=== PATIENT | male | born 1945 | race Caucasian/White ===

== ENCOUNTER 2016-08-15 09:28 | Inpatient (IN) | payer OTHER ==
[~2016-08-15] VITALS: Ht 198.1 cm; Wt 99.6 kg
[2016-08-15 09:58] LABS: BASO % 0.3 %; BASO ABS # 0.02 K/uL (0-0.2); COMPLETE YES; EOS % 3.1 %; HEMATOCRIT 35.2 % (42-52); IG% 0.3 %; LYMPH % 28.1 %; MEAN CORPUSCULAR HEMOGLOBIN 30.3 pg (25-34); MEAN CORPUSCULAR HGB CONC 34.4 g/dl (32-36); MEAN PLATELET VOLUME 9.2 fL (7.4-10.4); MONO % 5.6 %; NEUT % 62.6 %; PLATELET COUNT 181 K/uL (130-400)
--- NOTE | 2016-08-15 10:04 | DIAGNOSTIC IMAGING REPORT ---
SINGLE VIEW CHEST CLINICAL HISTORY: Atypical chest pain. FINDINGS: 2 AP, portable, upright chest radiographs are obtained. No prior studies are available for comparison at the time of dictation. The examination is degraded by portable technique and patient rotation. The heart is enlarged. The pulmonary vasculature is noncongested. Emphysema is suspected and there is nonspecific interstitial thickening. A calcified granuloma is noted in the left lower lobe. Biapical scarring is observed. No airspace consolidation, pleural effusion, or pneumothorax is seen. The bony thorax is grossly intact. IMPRESSION: Cardiomegaly and suspect emphysema. There is no acute cardiopulmonary abnormality. Electronically signed by: Wilbur Gonzales M.D. 08/15/2016 10:02 AM Dictated Date/Time: 08/15/2016 10:00 AM
[2016-08-15] MEDS ORDERED: GLIP-197 PO (10:12)
[2016-08-15] MEDS ORDERED: METO-478 PO (10:12)
[2016-08-15] MEDS ORDERED: PANT20TA2 PO (10:12)
[2016-08-15] MEDS ORDERED: SUCR1TAB29 PO (10:12)
[2016-08-15] MEDS ORDERED: METF-384 PO (10:12)
[2016-08-15] MEDS ORDERED: COEN30CA8 PO (10:12)
[2016-08-15] MEDS ORDERED: PROB1TAB16 PO (10:12)
[2016-08-15] MEDS ORDERED: MULTTAB58 PO (10:12)
[2016-08-15] MEDS ORDERED: ATOR-24 PO (10:12)
[2016-08-15] MEDS ORDERED: CLOP1TAB5 PO (10:12)
[2016-08-15] MEDS ORDERED: LISI20TA3 PO (10:12)
[2016-08-15] MEDS ORDERED: ASPI-232 PO (10:12)
[2016-08-15 10:15] LABS: BUN/CREATININE RATIO 15.6 (10-20); CREATININE 0.88 mg/dl (0.60-1.40); POTASSIUM 4.1 mmol/L (3.5-5.1)
[2016-08-15 10:22] LABS: CALCIUM 8.5 mg/dl (8.5-10.1)
[2016-08-15] MEDS ORDERED: OPTIRAY 320 IV PRN (12:15)
--- NOTE | 2016-08-15 13:00 | DIAGNOSTIC IMAGING REPORT ---
CT ANGIOGRAM OF THE CHEST CLINICAL HISTORY: Atypical chest pain. COMPARISON STUDY: Chest x-ray dated 08/15/2016. TECHNIQUE: Following the IV administration of 118 cc of Optiray 320, CT angiogram of the chest was performed from the upper abdomen to the thoracic inlet utilizing the pulmonary embolus protocol. Images are reviewed in the axial, sagittal, and coronal planes. 3-D MIPS images are created and assessed. IV contrast was administered without complication. CT DOSE: 418.79 mGy.cm FINDINGS: Thyroid: Imaged portions of the thyroid gland are normal in size and attenuation. Thoracic aorta: The thoracic aorta is normal in caliber and demonstrates standard 3-vessel arch anatomy. No evidence of dissection is seen. Pulmonary vasculature: The pulmonary trunk is normal in caliber. There are no filling defects identified in main, lobar, or segmental pulmonary branches to suggest pulmonary embolus. Heart: The heart is enlarged and without pericardial effusion. The coronary arteries are densely calcified. A right coronary artery stent is suggested. Lungs and pleural spaces: Mild emphysema is noted and there is biapical scarring. There is no airspace consolidation or pleural effusion. Dependent atelectasis is observed. The trachea and central airways are clear. There is a 9 mm left lower lobe pulmonary nodule seen on image #140. An additional 8 mm left lower lobe pulmonary nodule is seen on image #156. A tiny calcified granuloma is seen in the left upper lobe. Mediastinum: There is no mediastinal lymphadenopathy. Fanta: Clear. Axillae: There is no axillary lymphadenopathy. Upper abdomen: There is a small hiatal hernia. Scattered hepatic cysts measure up to 13 mm. Nodularity of the hepatic surface contour suggests early changes of cirrhosis. Skeletal structures: The skeletal structures are osteopenic. Mild degenerative changes noted throughout the thoracic spine. No lytic or blastic bony lesions are seen. IMPRESSION: 1. There is no evidence of pulmonary embolus in the main, lobar, or segmental pulmonary arteries. 2. Cardiomegaly and emphysema. 3. There are 2 left lower lobe pulmonary nodules measuring 8 mm and 9 mm. These are pathologically indeterminant but warrant follow-up as per the Fleischner criteria. See below. 4. No airspace consolidation or pleural effusion is identified. 5. Nodularity of the hepatic surface contour suggests early changes of cirrhosis. Clinical correlation will be required. Please refer to below summary of Fleischner criteria recommendations for follow-up of incidental CT nodules (H SivaPrdalen, Guidelines for management of small pulmonary nodules detected on CT scans: A statement from the Fleischner Society, Radiology 237: [phone].) SOLID NODULES Solitary nodule size: <6 mm * low risk patients: no follow-up needed * high risk patients: optional CT at 12 months Solitary nodule size: 6-8 mm * low risk patients: follow-up at 6-12 months, then consider further follow-up at 18-24 months * high risk patients: initial follow-up CT at 6-12 months and then at 18-24 months if no change Solitary nodule size: >8 mm * either low or high risk patients - consider follow-up CT at 3 months, and/or CT-PET, and/or biopsy Multiple nodules size: <6 mm * low risk patients: no routine follow-up * high risk patients: optional CT at 12 months Multiple nodules size: 6-8 mm * low risk patients: follow-up at 3-6 months, then consider further follow-up at 18-24 months * high risk patients: follow-up at 3-6 months, then at 18-24 months if no change Multiple nodules size: >8 mm * low risk patients: follow-up at 3-6 months, then consider further follow-up at 18-24 months * high risk patients: follow-up at 3-6 months, then at 18-24 months if no change Note: newly detected indeterminate nodule in persons 35 years of age or older. * low risk patients: minimal or absent history of smoking and/or other known risk factors * high risk patients: history of smoking or of other known risk factors (e.g. first degree relative with lung cancer, or exposure to asbestos, radon, uranium) * if a nodule up to 8 mm is partly solid or is ground glass further follow-up is required after 24 months to exclude possible slow growing adenocarcinoma (ERIC) SUBSOLID NODULES Solitary pure ground-glass nodule * nodule size <6 mm - no CT follow-up required * nodule size >=6 mm - follow-up CT at 6-12 months, then every 2 years until 5 years Solitary part-solid nodule * nodule size <6 mm - no CT follow-up required * nodule size >=6 mm - follow-up CT at 3-6 months. If unchanged, and solid component remains <6 mm, then annual follow-up for 5 years Multiple subsolid nodules * nodule size <6 mm - follow-up CT at 3-6 months, consider further follow-up at 2 and 4 years if stable * nodule size >=6 mm - follow-up CT at 3-6 months, subsequent management based on the most suspicious nodule(s) Electronically signed by: Wilbur Gonzales M.D. 08/15/2016 12:58 PM Dictated Date/Time: 08/15/2016 12:44 PM
[2016-08-15] MEDS ORDERED: ALUMINUM/MAGNESIUM/SIMETH (MAALOX MAX) 30 ML UDC PO PRN (14:00)
[2016-08-15] MEDS ORDERED: ZOLPIDEM TARTRATE 5 MG TAB PO PRN (14:00)
[2016-08-15] MEDS ORDERED: ONDANSETRON INJ 2 MG/ML 2 ML VIAL IV PRN (14:00)
[2016-08-15] MEDS ORDERED: NITROGLYCERIN OINT 2% 1GM PACKET EXT ONE (14:00)
--- NOTE | 2016-08-15 14:18 | History and Physical ---
History & Physical Date & Time of Service: Aug 15, 2016 at 14:02 Chief Complaint: Chest Pain Primary Care Physician: No Doctor, Assigned History of Present Illness Source: patient, family, hospital records This patient is a pleasant 70-year-old male that presents to the emergency department with complaints of crushing midsternal chest pain that lasted approximately 2-3 minutes this morning. It started around 9 AM. It dissipated on its own. He denies any shortness of breath at the time. No exacerbating factors. He denies any recent dyspnea on exertion. He denies any heart palpitations. He did feel fairly weak when he was walking into the emergency department today. The patient is visiting family in [place]. He is originally from [place], [place]. He does have a significant cardiac history. The patient underwent a cardiac catheterization in May 2015. during that catheterization, 2 stents were placed in the RCA. The patient then had an abnormal stress test in August 2015. That prompted him to undergo another cardiac catheterization. There is noted mild disease of the LAD. Medical management was recommended. No further stents were placed. According to the catheterization report from August 2015, the patient has inferior hypokinesis with a reduced systolic function with an EF of approximately 35%. The patient also complains of intermittent left calf pain 2-3 times at night over the last several weeks. It dissipates on its own. He says that it does not feel like a muscle cramp, it is more severe. He describes it as a very deep pain. He denies any injury. Workup in the emergency department was performed. EKG shows sinus bradycardia with a rate of 44 bpm. No acute ischemic changes were noted. CT of the chest was performed. No PE found. Incidentally, the patient does have 2 small left lower lobe pulmonary nodules. [id number] troponin is negative. 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 He also had diabetes. Social History Smoking Status: Former Smoker (quit smoking in 2002) Alcohol Use: none Marital Status: Housing status: lives with significant other Occupational Status: employed Allergies Coded Allergies: Levofloxacin (Verified Allergy, Unknown, rash, 08/15/16) rash at the iv site Home Medications Scheduled Aspirin (Aspir-81), 1 TAB PO DAILY Atorvastatin (Lipitor), 40 MG PO DAILY Clopidogrel Bisulfate (Plavix), 75 MG PO DAILY Coenzyme Q10 (Ubidecarenone) (Coq-10), 1 CAP PO DAILY Glipizide (Glipizide Er), 7.5 MG PO DAILY Lisinopril (Prinivil), 20 MG PO DAILY Metformin Hcl (Glucophage), 1,000 MG PO BID Metoprolol Succinate (Toprol Xl), 12.5 MG PO DAILY Multiple Vitamin (Multivitamin), 1 TAB PO DAILY Pantoprazole Sodium (Protonix), 20 MG PO DAILY Probiotic Product (Probiotic), 1 TAB PO DAILY Sucralfate (Carafate), 1 GM PO DAILY Review of Systems 10 system review performed and negative unless noted in HPI or below Physical Exam Vital Signs Date Time Temp Pulse Resp B/P Pulse Ox O2 Delivery O2 Flow Rate FiO2 08/15/16 13:30 44 16 184/84 98 Room Air 08/15/16 12:08 45 20 175/77 97 Room Air 08/15/16 11:07 49 16 195/80 97 Room Air 08/15/16 09:54 47 08/15/16 09:31 98 Room Air 08/15/16 09:31 36.8 43 18 201/89 98 Room Air 08/15/16 09:31 99 Room Air General Appearance: no apparent distress Head: normocephalic Eyes: EOMI ENT: + pertinent finding (oral mucosa moist) Neck: no JVD Respiratory/Chest: lungs clear Cardiovascular: no murmur, + bradycardia Abdomen/GI: normal bowel sounds, non tender, soft Extremities/Musculoskelatal: no calf tenderness, no pedal edema Neurologic/Psych: no motor/sensory deficits, oriented x 3 Skin: warm/dry Diagnostics Laboratory Results Results Past 24 Hours Test 08/15/16 09:45 08/15/16 09:52 Range/Units White Blood Count 6.40 4.8-10.8 K/uL Red Blood Count 4.00 4.7-6.1 M/uL Hemoglobin 12.1 14.0-18.0 g/dL Hematocrit 35.2 42-52 % Mean Corpuscular Volume 88.0 80-100 fL Mean Corpuscular Hemoglobin 30.3 25-34 pg Mean Corpuscular Hemoglobin Concent 34.4 32-36 g/dl Platelet Count 181 130-400 K/uL Mean Platelet Volume 9.2 7.4-10.4 fL Neutrophils (%) (Auto) 62.6 % Lymphocytes (%) (Auto) 28.1 % Monocytes (%) (Auto) 5.6 % Eosinophils (%) (Auto) 3.1 % Basophils (%) (Auto) 0.3 % Neutrophils # (Auto) 4.00 1.4-6.5 K/uL Lymphocytes # (Auto) 1.80 1.2-3.4 K/uL Monocytes # (Auto) 0.36 0.11-0.59 K/uL Eosinophils # (Auto) 0.20 0-0.5 K/uL Basophils # (Auto) 0.02 0-0.2 K/uL RDW Standard Deviation 42.1 36.4-46.3 fL RDW Coefficient of Variation 13.1 11.5-14.5 % Immature Granulocyte % (Auto) 0.3 % Immature Granulocyte # (Auto) 0.02 0.00-0.02 K/uL Sodium Level 142 136-145 mmol/L Potassium Level 4.1 3.5-5.1 mmol/L Chloride Level 107 98-107 mmol/L Carbon Dioxide Level 30 21-32 mmol/L Anion Gap 5.0 3-11 mmol/L Blood Urea Nitrogen 14 7-18 mg/dl Creatinine 0.88 0.60-1.40 mg/dl Est Creatinine Clear Calc Drug Dose 101.2 ml/min Estimated GFR () 101.6 Estimated GFR (Non- 87.6 BUN/Creatinine Ratio 15.6 10-20 Random Glucose 186 70-99 mg/dl Calcium Level 8.5 8.5-10.1 mg/dl Total Bilirubin 0.4 0.2-1 mg/dl Direct Bilirubin 0.1 0-0.2 mg/dl Aspartate Amino Transf (AST/SGOT) 16 15-37 U/L Alanine Aminotransferase (ALT/SGPT) 20 12-78 U/L Alkaline Phosphatase 98 45-117 U/L Total Protein 6.7 6.4-8.2 gm/dl Albumin 3.4 3.4-5.0 gm/dl Lipase 89 73-393 U/L Bedside D-Dimer > 450 0-450 ng/mlFEU Bedside Troponin I 0.000 0-0.045 ng/ml Diagnostic Radiology Patient: BERNA ALAS Address1: [address] [facility] [address] Rec: [id number] Address2: Acct ID: [id number] [facility] Zip: [place] [address] Date: 1945 Sex: M Room/Bed: Ref Phy: No Doctor, Assigned SC: SAMSON Att Phy: Report #: [id number] Ruthie Phy: No Doctor, Assigned Test: CXPEA Admit Phy: Manager Nursing Home: [facility] Interpreting Phy: Wilbur Gonzales M.D. Diagnosis: CHEST PAIN Ordering Phy: Chacorta Martínez MD Service Date: 08/15/16 Admit Date: 08/15/16 MNE: [id number] CONF: DICTATED BY: Wilbur Gonzales M.D.]] CC: Chacorta Martínez MD No Doctor, Assigned Endcc: [~ rep ct add3]] CT ANGIOGRAM OF THE CHEST CLINICAL HISTORY: Atypical chest pain. COMPARISON STUDY: Chest x-ray dated 08/15/2016. TECHNIQUE: Following the IV administration of 118 cc of Optiray 320, CT angiogram of the chest was performed from the upper abdomen to the thoracic inlet utilizing the pulmonary embolus protocol. Images are reviewed in the axial, sagittal, and coronal planes. 3-D MIPS images are created and assessed. IV contrast was administered without complication. CT DOSE: 418.79 mGy.cm FINDINGS: Thyroid: Imaged portions of the thyroid gland are normal in size and attenuation. Thoracic aorta: The thoracic aorta is normal in caliber and demonstrates standard 3-vessel arch anatomy. No evidence of dissection is seen. Pulmonary vasculature: The pulmonary trunk is normal in caliber. There are no filling defects identified in main, lobar, or segmental pulmonary branches to suggest pulmonary embolus. Heart: The heart is enlarged and without pericardial effusion. The coronary arteries are densely calcified. A right coronary artery stent is suggested. Lungs and pleural spaces: Mild emphysema is noted and there is biapical scarring. There is no airspace consolidation or pleural effusion. Dependent atelectasis is observed. The trachea and central airways are clear. There is a 9 mm left lower lobe pulmonary nodule seen on image #140. An additional 8 mm left lower lobe pulmonary nodule is seen on image #156. A tiny calcified granuloma is seen in the left upper lobe. Mediastinum: There is no mediastinal lymphadenopathy. Fanta: Clear. Axillae: There is no axillary lymphadenopathy. Upper abdomen: There is a small hiatal hernia. Scattered hepatic cysts measure up to 13 mm. Nodularity of the hepatic surface contour suggests early changes of cirrhosis. Skeletal structures: The skeletal structures are osteopenic. Mild degenerative changes noted throughout the thoracic spine. No lytic or blastic bony lesions are seen. IMPRESSION: 1. There is no evidence of pulmonary embolus in the main, lobar, or segmental pulmonary arteries. 2. Cardiomegaly and emphysema. 3. There are 2 left lower lobe pulmonary nodules measuring 8 mm and 9 mm. These are pathologically indeterminant but warrant follow-up as per the Fleischner criteria. See below. 4. No airspace consolidation or pleural effusion is identified. 5. Nodularity of the hepatic surface contour suggests early changes of cirrhosis. Clinical correlation will be required. Please refer to below summary of Fleischner criteria recommendations for follow-up of incidental CT nodules (Orion Zapata, Guidelines for management of small pulmonary nodules detected on CT scans: A statement from the Fleischner Society, Radiology 237: [phone].) EKG Sinus bradycardia with a rate of 44 bpm Q waves noted in V1 through V3 No acute ischemic changes noted No previous for comparison Impression Assessment and Plan 70-year-old male with a history of coronary artery disease, [place] and stent placement presents emergency department complaining of a few minutes of crushing chest pain this morning that has dissipated on its own Chest pain concerning for stable angina in the setting of coronary artery disease -observe in telemetry -follow cardiac enzymes x 6 h -daily EKG -EKG with worsening pain -nitro paste q 6 h -NPO after midnight in case any abnormalities come about in further work up -Continue medical management with aspirin 81 mg daily, Lipitor 40 mg daily, Plavix 75 mg daily, Toprol XL 12.5 mg daily, lisinopril 20 mg daily HTN-BP elevated -nitro and meds as noted above -Hydralazine 10 mg IV q 6 hr PRN Sinus bradycardia-BP stable -It should be noted that the patient felt like he became more fatigued with the addition of metoprolol. 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 He spends extended period of time in a vehicle. 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 Y/N: Yes Risk Level: Low Given or contraindicated: T.E.D. Stockings, SCD's Assessment and Plan Attending Addendum: I have physically seen and examined this patient, have directed their medical care, have supervised the PA's activity, and agree with the H&P as noted above, with the following changes: NONE.
[2016-08-15 14:25] VITALS: O2SAT 98; Ht 198.1 cm; Wt 99.6 kg
[2016-08-15] MEDS ORDERED: HydrALAZINE HCL 20 MG/ML VIAL IV. PRN (14:30)
[2016-08-15] MEDS ORDERED: IV FLUIDS COMPLETED PRN (14:30)
[2016-08-15] MEDS ORDERED: GLUCAGON FOR INJ 1 MG VIAL SQ PRN (15:15)
[2016-08-15] MEDS ORDERED: GLUCOSE 40% GEL 15 GM TUBE PO PRN (15:15)
[2016-08-15] MEDS ORDERED: GLUCOSE 10 TABS/TUBE PO PRN (15:15)
[2016-08-15] MEDS ORDERED: DEXTROSE 50% 50 ML SYR IV PRN (15:15)
--- NOTE | 2016-08-15 15:34 | DIAGNOSTIC IMAGING REPORT ---
ULTRASOUND LEFT LOWER EXTREMITY VENOUS CLINICAL HISTORY: Left calf pain. COMPARISON STUDY: No priors. TECHNIQUE: Real-time, grayscale, and color Doppler sonography of the deep veins of the left lower extremity was performed from the inguinal crease to the calf. Compression and augmentation were utilized. FINDINGS: There is no sonographic evidence of deep venous thrombosis identified in the left lower extremity. The common femoral, superficial femoral, and popliteal veins are patent and normally compressible. The greater saphenous vein and the profunda femoris vein at the junction with the common femoral vein are clear. The visualized calf veins are patent. Superficial venous varicosities are noted in the left calf and thigh. IMPRESSION: There is no sonographic evidence of deep venous thrombosis identified in the left lower extremity. Electronically signed by: Wilbur Gonzales M.D. 08/15/2016 3:32 PM Dictated Date/Time: 08/15/2016 3:31 PM
[2016-08-15] MEDS: INSULIN ASPART 100 UNITS/ML 3 ML PEN SC SCH ×2 (16:51→23:12)
--- NOTE | 2016-08-15 16:53 | EMERGENCY ROOM VISIT NOTE ---
History Report prepared by Adriana: Aron Reddy Under the Supervision of: Dr. Chacorta Martínez M.D. First contact with patient: 09:36 Chief Complaint: CHEST PAIN Stated Complaint: CHEST PAIN History of Present Illness The patient is a 70 year old male with CAD who presents to the Emergency Room with complaints of severe middle chest pain that started approximately 30 minutes prior to arrival. The chest pain is now resolved and lasted for several minutes. The pain was radiating to his jaw. He denies diaphoresis, shortness of breath, or nausea. He did not have nitroglycerin but took his daily aspirin. The patient had a heart attack this past May, and has two coronary stents. He had chest pain two weeks ago as well that he thought was angina. The patient follows up with [facility]. He is visiting [facility]. The patient's notes that his heart rate runs slow at baseline. He is on Plavix for his stents. He is diabetic and hypertensive. 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 He denies history of aneurysms , lung disease, or blood clots. Patient denies LOC, headache, fevers, chills, visual changes, neck pain, tearing pain radiating to the back, personal history or family history of aneurysm or pulmonary embolism, breathing difficulties, leg swelling, coagulation abnormalities, recent surgery or immobilization, vomiting, abdominal pain, melena, hematochezia, urinary symptoms, numbness, weakness, lymphadenopathy, rash, or other complaints. Source of History: patient, spouse/significant other Onset: 30 minutes [employer]IC[employer] Position: chest Symptom Intensity: severe Timing: resolved Associated Symptoms: No SOB, No diaphoresis, No nausea Review of Systems See HPI for pertinent positives and negatives. A total of ten systems were reviewed and were otherwise negative. Past Medical & Surgical Medical Problems: (1) Bacteremia (2) Chest pain (3) Coronary artery disease (4) Diabetes (5) Hypertension (6) Myocardial infarction (7) Pancreatitis (8) Whipple procedure Surgical Problems: (1) S/P coronary artery stent placement Family History No pertinent family history Social History Marital Status: Housing Status: lives with family Current/Historical Medications Scheduled Aspirin (Aspir-81), 1 TAB PO DAILY Atorvastatin (Lipitor), 40 MG PO DAILY Clopidogrel Bisulfate (Plavix), 75 MG PO DAILY Coenzyme Q10 (Ubidecarenone) (Coq-10), 1 CAP PO DAILY Glipizide (Glipizide Er), 7.5 MG PO DAILY Lisinopril (Prinivil), 20 MG PO DAILY Metformin Hcl (Glucophage), 1,000 MG PO BID Metoprolol Succinate (Toprol Xl), 12.5 MG PO DAILY Multiple Vitamin (Multivitamin), 1 TAB PO DAILY Pantoprazole Sodium (Protonix), 20 MG PO DAILY Probiotic Product (Probiotic), 1 TAB PO DAILY Sucralfate (Carafate), 1 GM PO DAILY Allergies Coded Allergies: Levofloxacin (Verified Allergy, Unknown, rash, 08/15/16) rash at the iv site Physical Exam Vital Signs Date Time Temp Pulse Resp B/P Pulse Ox O2 Delivery O2 Flow Rate FiO2 08/15/16 13:30 44 16 184/84 98 Room Air 08/15/16 12:08 45 20 175/77 97 Room Air 08/15/16 11:07 49 16 195/80 97 Room Air 08/15/16 09:54 47 08/15/16 09:31 98 Room Air 08/15/16 09:31 36.8 43 18 201/89 98 Room Air 08/15/16 09:31 99 Room Air Physical Exam GENERAL: Awake, alert, well-appearing, in no distress HENT: Normocephalic, atraumatic. Oropharynx unremarkable. EYES: Normal conjunctiva. Sclera non-icteric. NECK: Supple. No nuchal rigidity. FROM. No JVD. RESPIRATORY: Clear to auscultation. CARDIAC: Regular rate, normal rhythm. Extremities warm and well perfused. Pulses equal. ABDOMEN: Soft, non-distended. No tenderness to palpation. No rebound or guarding. No masses. RECTAL: Deferred. MUSCULOSKELETAL: Chest examination reveals no tenderness. The back is symmetrical on inspection without obvious abnormality. There is no CVA tenderness to palpation. No joint edema. LOWER EXTREMITIES: Calves are equal size bilaterally and non-tender. No edema. No discoloration. NEURO: Normal sensorium. No sensory or motor deficits noted. SKIN: No rash or jaundice noted. Medical Decision & Procedures ER Provider Diagnostic Interpretation: X ray results as stated below per my interpretation and radiologist interpretation. Other radiology results as stated below per my review and radiologist interpretation SINGLE VIEW CHEST CLINICAL HISTORY: Atypical chest pain. FINDINGS: 2 AP, portable, upright chest radiographs are obtained. No prior studies are available for comparison at the time of dictation. The examination is degraded by portable technique and patient rotation. The heart is enlarged. The pulmonary vasculature is noncongested. Emphysema is suspected and there is nonspecific interstitial thickening. A calcified granuloma is noted in the left lower lobe. Biapical scarring is observed. No airspace consolidation, pleural effusion, or pneumothorax is seen. The bony thorax is grossly intact. IMPRESSION: Cardiomegaly and suspect emphysema. There is no acute cardiopulmonary abnormality. Electronically signed by: Wilbur Gonzales M.D. 08/15/2016 10:02 AM Dictated Date/Time: 08/15/2016 10:[address] ANGIOGRAM OF THE CHEST CLINICAL HISTORY: Atypical chest pain. COMPARISON STUDY: Chest x-ray dated 08/15/2016. TECHNIQUE: Following the IV administration of 118 cc of Optiray 320, CT angiogram of the chest was performed from the upper abdomen to the thoracic inlet utilizing the pulmonary embolus protocol. Images are reviewed in the axial, sagittal, and coronal planes. 3-D MIPS images are created and assessed. IV contrast was administered without complication. CT DOSE: 418.79 mGy.cm FINDINGS: Thyroid: Imaged portions of the thyroid gland are normal in size and attenuation. Thoracic aorta: The thoracic aorta is normal in caliber and demonstrates standard 3-vessel arch anatomy. No evidence of dissection is seen. Pulmonary vasculature: The pulmonary trunk is normal in caliber. There are no filling defects identified in main, lobar, or segmental pulmonary branches to suggest pulmonary embolus. Heart: The heart is enlarged and without pericardial effusion. The coronary arteries are densely calcified. A right coronary artery stent is suggested. Lungs and pleural spaces: Mild emphysema is noted and there is biapical scarring. There is no airspace consolidation or pleural effusion. Dependent atelectasis is observed. The trachea and central airways are clear. There is a 9 mm left lower lobe pulmonary nodule seen on image #140. An additional 8 mm left lower lobe pulmonary nodule is seen on image #156. A tiny calcified granuloma is seen in the left upper lobe. Mediastinum: There is no mediastinal lymphadenopathy. Fanta: Clear. Axillae: There is no axillary lymphadenopathy. Upper abdomen: There is a small hiatal hernia. Scattered hepatic cysts measure up to 13 mm. Nodularity of the hepatic surface contour suggests early changes of cirrhosis. Skeletal structures: The skeletal structures are osteopenic. Mild degenerative changes noted throughout the thoracic spine. No lytic or blastic bony lesions are seen. IMPRESSION: 1. There is no evidence of pulmonary embolus in the main, lobar, or segmental pulmonary arteries. 2. Cardiomegaly and emphysema. 3. There are 2 left lower lobe pulmonary nodules measuring 8 mm and 9 mm. These are pathologically indeterminant but warrant follow-up as per the Fleischner criteria. See below. 4. No airspace consolidation or pleural effusion is identified. 5. Nodularity of the hepatic surface contour suggests early changes of cirrhosis. Clinical correlation will be required. Please refer to below summary of Fleischner criteria recommendations for follow-up of incidental CT nodules (Orion Zapata, Guidelines for management of small pulmonary nodules detected on CT scans: A statement from the Fleischner Society, Radiology 237: [phone].) SOLID NODULES Solitary nodule size: <6 mm * low risk patients: no follow-up needed * high risk patients: optional CT at 12 months Solitary nodule size: 6-8 mm * low risk patients: follow-up at 6-12 months, then consider further follow-up at 18-24 months * high risk patients: initial follow-up CT at 6-12 months and then at 18-24 months if no change Solitary nodule size: >8 mm * either low or high risk patients - consider follow-up CT at 3 months, and/or CT-PET, and/or biopsy Multiple nodules size: <6 mm * low risk patients: no routine follow-up * high risk patients: optional CT at 12 months Multiple nodules size: 6-8 mm * low risk patients: follow-up at 3-6 months, then consider further follow-up at 18-24 months * high risk patients: follow-up at 3-6 months, then at 18-24 months if no change Multiple nodules size: >8 mm * low risk patients: follow-up at 3-6 months, then consider further follow-up at 18-24 months * high risk patients: follow-up at 3-6 months, then at 18-24 months if no change Note: newly detected indeterminate nodule in persons 35 years of age or older. * low risk patients: minimal or absent history of smoking and/or other known risk factors * high risk patients: history of smoking or of other known risk factors (e.g. first degree relative with lung cancer, or exposure to asbestos, radon, uranium) * if a nodule up to 8 mm is partly solid or is ground glass further follow-up is required after 24 months to exclude possible slow growing adenocarcinoma (ERIC) SUBSOLID NODULES Solitary pure ground-glass nodule * nodule size <6 mm - no CT follow-up required * nodule size >=6 mm - follow-up CT at 6-12 months, then every 2 years until 5 years Solitary part-solid nodule * nodule size <6 mm - no CT follow-up required * nodule size >=6 mm - follow-up CT at 3-6 months. If unchanged, and solid component remains <6 mm, then annual follow-up for 5 years Multiple subsolid nodules * nodule size <6 mm - follow-up CT at 3-6 months, consider further follow-up at 2 and 4 years if stable * nodule size >=6 mm - follow-up CT at 3-6 months, subsequent management based on the most suspicious nodule(s) Electronically signed by: Wilbur Gonzales M.D. 08/15/2016 12:58 PM Dictated Date/Time: 08/15/2016 12:44 PM Laboratory Results 08/15/16 09:45 Red Blood Count 4.00, Mean Corpuscular Volume 88.0, Mean Corpuscular Hemoglobin 30.3, Mean Corpuscular Hemoglobin Concent 34.4, Mean Platelet Volume 9.2, Neutrophils (%) (Auto) 62.6, Lymphocytes (%) (Auto) 28.1, Monocytes (%) (Auto) 5.6, Eosinophils (%) (Auto) 3.1, Basophils (%) (Auto) 0.3, Neutrophils # (Auto) 4.00, Lymphocytes # (Auto) 1.80, Monocytes # (Auto) 0.36, Eosinophils # (Auto) 0.20, Basophils # (Auto) 0.02 08/15/16 09:45 Test 08/15/16 09:45 08/15/16 09:52 White Blood Count 6.40 K/uL (4.8-10.8) Red Blood Count 4.00 M/uL (4.7-6.1) Hemoglobin 12.1 g/dL (14.0-18.0) Hematocrit 35.2 % (42-52) Mean Corpuscular Volume 88.0 fL (80-100) Mean Corpuscular Hemoglobin 30.3 pg (25-34) Mean Corpuscular Hemoglobin Concent 34.4 g/dl (32-36) Platelet Count 181 K/uL (130-400) Mean Platelet Volume 9.2 fL (7.4-10.4) Neutrophils (%) (Auto) 62.6 % Lymphocytes (%) (Auto) 28.1 % Monocytes (%) (Auto) 5.6 % Eosinophils (%) (Auto) 3.1 % Basophils (%) (Auto) 0.3 % Neutrophils # (Auto) 4.00 K/uL (1.4-6.5) Lymphocytes # (Auto) 1.80 K/uL (1.2-3.4) Monocytes # (Auto) 0.36 K/uL (0.11-0.59) Eosinophils # (Auto) 0.20 K/uL (0-0.5) Basophils # (Auto) 0.02 K/uL (0-0.2) RDW Standard Deviation 42.1 fL (36.4-46.3) RDW Coefficient of Variation 13.1 % (11.5-14.5) Immature Granulocyte % (Auto) 0.3 % Immature Granulocyte # (Auto) 0.02 K/uL (0.00-0.02) Anion Gap 5.0 mmol/L (3-11) Est Creatinine Clear Calc Drug Dose 101.2 ml/min Estimated GFR () 101.6 Estimated GFR (Non- 87.6 BUN/Creatinine Ratio 15.6 (10-20) Calcium Level 8.5 mg/dl (8.5-10.1) Total Bilirubin 0.4 mg/dl (0.2-1) Direct Bilirubin 0.1 mg/dl (0-0.2) Aspartate Amino Transf (AST/SGOT) 16 U/L (15-37) Alanine Aminotransferase (ALT/SGPT) 20 U/L (12-78) Alkaline Phosphatase 98 U/L (45-117) Total Protein 6.7 gm/dl (6.4-8.2) Albumin 3.4 gm/dl (3.4-5.0) Lipase 89 U/L (73-393) Bedside D-Dimer > 450 ng/mlFEU (0-450) Bedside Troponin I 0.000 ng/ml (0-0.045) Laboratory results reviewed by me Medications Administered Medications (Trade) Dose Ordered Sig/Levon Route Start Time Stop Time Status Last Admin Dose Admin Nitroglycerin (Nitroglycerin 2% Oint) 1 inch NOW ONCE EXT 08/15/16 14:00 08/15/16 14:48 DC 08/15/16 14:52 1 INCH ECG Indication: chest pain Rate (beats per minute): 44 Rhythm: sinus bradycardia Findings: Q waves (anteroseptal), RBBB (incomplete) ED Course 926: The patient was evaluated in room B4b. A complete history and physical exam was performed. 1314: Discussed the case with Neal Mckenzie. The patient will be evaluated. 1317: Updated the patient. Medical Decision Triage Nursing notes reviewed. The patient's presentation and history were concerning for chest pain. Etiologies such as cardiac ischemia, aortic dissection, pulmonary embolism, pneumonia, pneumothorax, musculoskeletal, infections, gastrointestinal, as well as others were entertained. Patient was evaluated. His pain had resolved. His cardiac history was concerning. He had a mild anemia on CBC. His d-dimer is mildly elevated. Troponin, chemistry panel, LFTs, and lipase were negative. The patient had an unremarkable chest x-ray. ECG was nonischemic. Records were reviewed reviewed after obtaining them from his outside hospital. The patient underwent CT imaging of the chest which did not reveal any evidence of pulmonary embolus. He was told the results of the findings and need for follow-up. Because of his cardiac history of additional testing and treatment was felt to be necessary. Consultation was made with internal medicine. He was evaluated in the Emergency Room for further treatment. The chart was completed utilizing [employer] Speech voice recognition software. Grammatical errors, random word insertions, pronoun errors, and incomplete sentences are an occasional consequence of this system due to software limitations, ambient noise, and hardware issues. Any formal questions or concerns about the content, text, or information contained within the body of this dictation should be directly addressed to the physician for clarification. Consults Time Called: 1310 Consulting Physician: Neal Mckenzie. Returned Call: [phone]: Discussed the case with Neal Mckenzie. The patient will be evaluated. Impression Primary Impression: Left sided chest pain Scribe Attestation The scribe's documentation has been prepared under my direction and personally reviewed by me in its entirety. I confirm that the note above accurately reflects all work, treatment, procedures, and medical decision making performed by me. Departure Information Dispostion Being Evaluated By Hospitalist Referrals No Doctor, Assigned (PCP) Patient Instructions My [facility]
[2016-08-15 19:17] VITALS: BP 175/84; PULSE 56; TEMP 36.7; O2SAT 97
[2016-08-15] MEDS: NITROGLYCERIN OINT 2% 1GM PACKET EXT SCH (19:22)
[2016-08-15] MEDS: ACETAMINOPHEN 325 MG TAB PO PRN (22:10)
[2016-08-15 23:45] VITALS: BP 114/49; PULSE 48; TEMP 36.7; O2SAT 96
[2016-08-16] VITALS (8 sets, daily range): BP systolic 125–181; BP diastolic 67–78; PULSE 60–75; TEMP 36.7–37.8; O2SAT 95–98
[2016-08-16] MEDS: NITROGLYCERIN OINT 2% 1GM PACKET EXT SCH ×2 (01:44→07:58)
[2016-08-16 01:52] LABS: BASO % 0.3 %; BASO ABS # 0.02 K/uL (0-0.2); COMPLETE YES; EOS % 2.7 %; HEMATOCRIT 33.2 % (42-52); IG% 0.1 %; LYMPH % 20.2 %; LYMPH ABS # 1.35 K/uL (1.2-3.4); MEAN CELL VOLUME 87.8 fL (80-100); MEAN CORPUSCULAR HEMOGLOBIN 30.2 pg (25-34); MEAN CORPUSCULAR HGB CONC 34.3 g/dl (32-36); MEAN PLATELET VOLUME 8.9 fL (7.4-10.4); MONO % 7.3 %; NEUT % 69.4 %; PLATELET COUNT 173 K/uL (130-400); RED BLOOD COUNT 3.78 M/uL (4.7-6.1); WHITE BLOOD COUNT 6.69 K/uL (4.8-10.8)
[2016-08-16 02:10] LABS: BLOOD UREA NITROGEN 13 mg/dl (7-18); BUN/CREATININE RATIO 15.8 (10-20); CALCIUM 7.9 mg/dl (8.5-10.1); CARBON DIOXIDE 32 mmol/L (21-32); CHLORIDE 107 mmol/L (98-107); CREATININE 0.82 mg/dl (0.60-1.40); GLUCOSE 125 mg/dl (70-99); POTASSIUM 3.7 mmol/L (3.5-5.1); SODIUM 144 mmol/L (136-145)
[2016-08-16 02:15] LABS: CKMB/CK RATIO 1.8 (0-3.0)
[2016-08-16] MEDS: ACETAMINOPHEN 325 MG TAB PO PRN ×4 (06:41→20:39)
[2016-08-16] MEDS: PANTOprazole SOD 40 MG TAB PO SCH (07:57)
[2016-08-16] MEDS: LISINOPRIL 20 MG TAB PO SCH (07:57)
[2016-08-16] MEDS: METOPROLOL SUCC 25MG EXT REL TAB PO SCH (07:57)
[2016-08-16] MEDS: INSULIN ASPART 100 UNITS/ML 3 ML PEN SC SCH ×4 (07:59→20:40)
[2016-08-16] MEDS ORDERED: SUCRALFATE 1 GM TAB PO SCH (09:00)
[2016-08-16] MEDS ORDERED: ATORVASTATIN 40 MG TAB PO SCH (09:00)
[2016-08-16] MEDS: ASPIRIN 81 MG ECTAB PO SCH (09:52)
[2016-08-16] MEDS: CLOPIDOGREL BISULFATE 75 MG TAB PO SCH (09:52)
[2016-08-16] MEDS ORDERED: NURSING VERBAL MED ORDER ONE (13:00)
--- NOTE | 2016-08-16 13:17 | ECHOCARDIOGRAM REPORT ---
*NOTICE TO RECEIVING REPUBLICAN AGENCY This information is strictly Confidential and protected under [place] law. [place] law prohibits you from making any further disclosure of this information unless further disclosure is expressly permitted by the written consent of the person to whom it pertains or is authorized by law. A general authorization for the release of medical or other information is not sufficient for this purpose. Hospital accepts no responsibility if the information is made available to any other person, INCLUDING THE PATIENT. Interpretation Summary * Name: BERNA ALAS Study Date: 08/16/2016 08:37 AM BP: 158/72 mmHg * Patient Location: C.2T\S\S230\S\2 HR: 61 * : 1945 (M/d/yyyy) Gender: Male Height: 78 in * Age: 70 yrs Ethnicity: CA Weight: 220 lb * Ordering Physician: Adrianne Quintana * Performed By: Kenia Solis * * Reason For Study: CHEST PAIN * BSA: 2.4 m2 * -- Conclusions -- * 1. Normal left ventricular size and systolic function. EF 60-65%. No regional wall motion abnormalities. Mild concentric left ventricular hypertrophy. Type 1 diastolic dysfunction. * 2. No significant valvular abnormalities visualized. * 3. Mildly dilated aortic root. * 4. No prior study available for comparison Procedure Details * A complete two-dimensional transthoracic echocardiogram was performed (2D, M-mode, Doppler and color flow Doppler). Left Ventricle * Normal left ventricular size and systolic function. EF 60-65%. No regional wall motion abnormalities. Mild concentric left ventricular hypertrophy. Type 1 diastolic dysfunction. Right Ventricle * The right ventricle is normal in size and function. * The right ventricular systolic function is normal as assessed by tricuspid annular plane systolic excursion (TAPSE) (normal >1.5 cm). Atria * The left atrial size is normal. * Right atrial size is normal. * There is no evidence of atrial septal defect, but resolution does not allow assessment for a patent foramen ovale. Mitral Valve * The mitral valve leaflets appear thickened, but open well. * There is no mitral valve stenosis. * There is no mitral regurgitation noted. Tricuspid Valve * The tricuspid valve is not well visualized, but is grossly normal. * There is no tricuspid stenosis. * Significant tricuspid regurgitation is absent. Aortic Valve * The aortic valve is normal in structure and function. * The aortic valve is trileaflet. * No hemodynamically significant valvular aortic stenosis. * No aortic regurgitation is present. Pulmonic Valve * The pulmonary valve is inadequately visualized, but the Doppler data is adequate for interpretation. * There is no pulmonic valvular stenosis. * There is no significant pulmonary regurgitation. Great Vessels * Aortic arch of normal dimension. * Mild aortic root dilatation. * Normal pulmonary venous flow pattern. Pericardium/Pleural * There is no pericardial effusion. Great Vessels * Normal inferior vena cava size and collapsability with sniff indicates a normal right atrial pressure of 3 mmHg MMode 2D Measurements and Calculations IVSd 1.3 cm IVSs 2.4 cm LVIDd 5.0 cm LVIDs 3.1 cm LVPWd 1.3 cm LVPWs 1.6 cm IVS/LVPW 1.0 FS 38.2 % EDV(Teich) 117.6 ml ESV(Teich) 37.4 ml EF(Teich) 68.2 % EDV(cubed) 124.1 ml ESV(cubed) 29.3 ml EF(cubed) 76.4 % % IVS thick 84.0 % % LVPW thick 24.3 % LV mass(C)d 259.3 grams LV mass(C)dI 110.3 grams/m\S\2 LV mass(C)s 271.7 grams LV mass(C)sI 115.6 grams/m\S\2 SV(Teich) 80.2 ml SI(Teich) 34.1 ml/m\S\2 SV(cubed) 94.8 ml SI(cubed) 40.3 ml/m\S\2 Ao root diam 4.5 cm Ao root area 15.9 cm\S\2 ACS 1.6 cm LA dimension 2.8 cm asc Aorta Diam 3.6 cm LA/Ao 0.62 LVOT diam 2.3 cm LVOT area 4.1 cm\S\2 LVAd ap4 32.9 cm\S\2 LVLd ap4 9.5 cm EDV(MOD-sp4) 91.9 ml EDV(sp4-el) 96.7 ml LVAs ap4 16.7 cm\S\2 LVLs ap4 7.6 cm ESV(MOD-sp4) 30.5 ml ESV(sp4-el) 31.0 ml EF(MOD-sp4) 66.8 % EF(sp4-el) 68.0 % LVAd ap2 34.4 cm\S\2 LVLd ap2 9.2 cm EDV(MOD-sp2) 105.7 ml EDV(sp2-el) 109.3 ml LVAs ap2 19.2 cm\S\2 LVLs ap2 7.5 cm ESV(MOD-sp2) 41.5 ml ESV(sp2-el) 41.7 ml EF(MOD-sp2) 60.7 % EF(sp2-el) 61.9 % LVLd %diff -3.53 % EDV(MOD-bp) 100.7 ml LVLs %diff -1.80 % ESV(MOD-bp) 35.5 ml EF(MOD-bp) 64.8 % SV(MOD-sp4) 61.4 ml SI(MOD-sp4) 26.1 ml/m\S\2 SV(MOD-sp2) 64.2 ml SI(MOD-sp2) 27.3 ml/m\S\2 SV(MOD-bp) 65.2 ml SI(MOD-bp) 27.7 ml/m\S\2 SV(sp4-el) 65.8 ml SI(sp4-el) 28.0 ml/m\S\2 SV(sp2-el) 67.6 ml SI(sp2-el) 28.8 ml/m\S\2 Doppler Measurements and Calculations MV E max rubi 67.2 cm/sec MV A max rubi 83.7 cm/sec MV E/A 0.80 MV dec time 0.30 sec Ao V2 max 154.1 cm/sec Ao max PG 9.5 mmHg Ao max PG (full) 0.89 mmHg GABRIELLA(V,A) 3.9 cm\S\2 GABRIELLA(V,D) 3.9 cm\S\2 LV V1 max PG 8.6 mmHg LV V1 max 146.7 cm/sec TV E max rubi 44.9 cm/sec PA V2 max 82.0 cm/sec PA max PG 2.7 mmHg RAP systole 3.0 mmHg
--- NOTE | 2016-08-16 13:51 | Hospitalist Progress Note ---
Hospitalist Progress Note Date of Service Aug 16, 2016. (Rita Donovan PA-C) Subjective Pt evaluation today including: conversation w/ patient, conversation w/ family , physical exam, chart review, lab review, review of studies, conversation w/ client relationship consultant, review of inpatient medication list Patient admits to having a few minutes of returning, crushing midsternal chest pain this morning. No associated shortness of breath. No exacerbating or alleviating factors. He also complains of a mild headache which he attributes to nitroglycerin. Unfortunately, the patient also is complaining of body aches and chills. He is concerned that he may have recurrent bacteremia. This is his typical symptom. He denies any other infectious symptoms such as cough, sore throat, running nose , dysuria, vomiting or diarrhea or abdominal pain. Additional Comments: 6 system review negative. Please see pertinent positives in the history of present illness section. (Rita Donovan PA-C) Objective Vital Signs Date Time Temp Pulse Resp B/P Pulse Ox O2 Delivery O2 Flow Rate FiO2 08/16/16 12:00 Room Air 08/16/16 08:00 97 Room Air 08/16/16 07:43 37.5 61 18 158/72 97 Room Air 08/16/16 06:48 75 24 165/76 98 Room Air 08/16/16 04:00 Room Air 08/16/16 03:33 36.7 62 18 125/67 97 Room Air 08/15/16 23:59 Room Air 08/15/16 23:45 36.7 48 18 114/49 96 Room Air 08/15/16 20:00 Room Air 08/15/16 19:17 36.7 56 18 175/84 97 Room Air 08/15/16 16:00 Room Air 08/15/16 14:45 51 16 199/97 98 08/15/16 14:25 98 Room Air (Rita Donovan PA-C) Physical Exam General Appearance: + mild distress (mildly uncomfortable. Covered in blankets.) Eyes: EOMI Neck: no JVD Respiratory/Chest: lungs clear Cardiovascular: regular rate, rhythm, no murmur Abdomen: normal bowel sounds, non tender, soft Extremities: non-tender, no pedal edema Neurologic/Psychiatric: no motor/sensory deficits, oriented x 3 Skin: warm/dry (Rita Donovan., PA-C) Laboratory Results 08/16/16 01:44 Red Blood Count 3.78, Mean Corpuscular Volume 87.8, Mean Corpuscular Hemoglobin 30.2, Mean Corpuscular Hemoglobin Concent 34.3, Mean Platelet Volume 8.9, Neutrophils (%) (Auto) 69.4, Lymphocytes (%) (Auto) 20.2, Monocytes (%) (Auto) 7.3, Eosinophils (%) (Auto) 2.7, Basophils (%) (Auto) 0.3, Neutrophils # (Auto) 4.64, Lymphocytes # (Auto) 1.35, Monocytes # (Auto) 0.49, Eosinophils # (Auto) 0.18, Basophils # (Auto) 0.02 08/16/16 01:44 Test 08/16/16 01:44 08/16/16 06:26 08/16/16 07:33 08/16/16 10:48 White Blood Count 6.69 K/uL (4.8-10.8) Red Blood Count 3.78 M/uL (4.7-6.1) Hemoglobin 11.4 g/dL (14.0-18.0) Hematocrit 33.2 % (42-52) Mean Corpuscular Volume 87.8 fL (80-100) Mean Corpuscular Hemoglobin 30.2 pg (25-34) Mean Corpuscular Hemoglobin Concent 34.3 g/dl (32-36) Platelet Count 173 K/uL (130-400) Mean Platelet Volume 8.9 fL (7.4-10.4) Neutrophils (%) (Auto) 69.4 % Lymphocytes (%) (Auto) 20.2 % Monocytes (%) (Auto) 7.3 % Eosinophils (%) (Auto) 2.7 % Basophils (%) (Auto) 0.3 % Neutrophils # (Auto) 4.64 K/uL (1.4-6.5) Lymphocytes # (Auto) 1.35 K/uL (1.2-3.4) Monocytes # (Auto) 0.49 K/uL (0.11-0.59) Eosinophils # (Auto) 0.18 K/uL (0-0.5) Basophils # (Auto) 0.02 K/uL (0-0.2) RDW Standard Deviation 42.0 fL (36.4-46.3) RDW Coefficient of Variation 13.1 % (11.5-14.5) Immature Granulocyte % (Auto) 0.1 % Immature Granulocyte # (Auto) 0.01 K/uL (0.00-0.02) Anion Gap 5.0 mmol/L (3-11) Est Creatinine Clear Calc Drug Dose 109.9 ml/min Estimated GFR () 104.6 Estimated GFR (Non- 90.2 BUN/Creatinine Ratio 15.8 (10-20) Calcium Level 7.9 mg/dl (8.5-10.1) Magnesium Level 2.0 mg/dl (1.8-2.4) Bedside Glucose 169 mg/dl (70-99) Total Creatine Kinase 33 U/L (39-308) Creatine Kinase MB < 0.5 ng/ml (0.5-3.6) Creatine Kinase MB Ratio (0-3.0) Troponin I < 0.015 ng/ml (0-0.045) Erythrocyte Sedimentation Rate 28 mm/hr (0-14) Lactic Acid Level 1.0 mmol/L (0.4-2.0) C-Reactive Protein 1.82 mg/dl (0-0.29) Procalcitonin 0.40 ng/mL (0-0.5) Last 24 Hours Test 08/15/16 16:46 08/15/16 19:54 08/15/16 20:20 08/15/16 23:06 Bedside Glucose 126 mg/dl 218 mg/dl 178 mg/dl Total Creatine Kinase 37 U/L Creatine Kinase MB < 0.5 ng/ml Creatine Kinase MB Ratio Troponin I < 0.015 ng/ml Test 08/16/16 01:44 08/16/16 06:26 08/16/16 07:33 08/16/16 10:48 White Blood Count 6.69 K/uL Red Blood Count 3.78 M/uL Hemoglobin 11.4 g/dL Hematocrit 33.2 % Mean Corpuscular Volume 87.8 fL Mean Corpuscular Hemoglobin 30.2 pg Mean Corpuscular Hemoglobin Concent 34.3 g/dl Platelet Count 173 K/uL Mean Platelet Volume 8.9 fL Neutrophils (%) (Auto) 69.4 % Lymphocytes (%) (Auto) 20.2 % Monocytes (%) (Auto) 7.3 % Eosinophils (%) (Auto) 2.7 % Basophils (%) (Auto) 0.3 % Neutrophils # (Auto) 4.64 K/uL Lymphocytes # (Auto) 1.35 K/uL Monocytes # (Auto) 0.49 K/uL Eosinophils # (Auto) 0.18 K/uL Basophils # (Auto) 0.02 K/uL RDW Standard Deviation 42.0 fL RDW Coefficient of Variation 13.1 % Immature Granulocyte % (Auto) 0.1 % Immature Granulocyte # (Auto) 0.01 K/uL Sodium Level 144 mmol/L Potassium Level 3.7 mmol/L Chloride Level 107 mmol/L Carbon Dioxide Level 32 mmol/L Anion Gap 5.0 mmol/L Blood Urea Nitrogen 13 mg/dl Creatinine 0.82 mg/dl Est Creatinine Clear Calc Drug Dose 109.9 ml/min Estimated GFR () 104.6 Estimated GFR (Non- 90.2 BUN/Creatinine Ratio 15.8 Random Glucose 125 mg/dl Calcium Level 7.9 mg/dl Magnesium Level 2.0 mg/dl Total Creatine Kinase 34 U/L 33 U/L Creatine Kinase MB 0.6 ng/ml < 0.5 ng/ml Creatine Kinase MB Ratio 1.8 Troponin I < 0.015 ng/ml < 0.015 ng/ml Bedside Glucose 169 mg/dl Erythrocyte Sedimentation Rate 28 mm/hr Lactic Acid Level 1.0 mmol/L C-Reactive Protein 1.82 mg/dl Procalcitonin 0.40 ng/mL (Rita Donovan PA-C) Diagnostic Results Echo 08/16 * 1. Normal left ventricular size and systolic function. EF 60-65%. No regional wall motion abnormalities. Mild concentric left ventricular hypertrophy. Type 1 diastolic dysfunction. * 2. No significant valvular abnormalities visualized. * 3. Mildly dilated aortic root. * 4. No prior study available for comparison (Rita Donovan PA-C) Assessment and Plan 70-year-old male with a history of coronary artery disease, [place] and stent placement presents emergency department complaining of a few minutes of crushing chest pain prior to arrival Chest pain concerning for stable angina in the setting of coronary artery disease. Had another episode of pain this morning. -observe in telemetry -Cardiac enzymes remain negative -No EKG changes noted -Appreciate Echo EF preserved at 65-70%. No wall motion abnormalities noted. -d/c nitro paste -add Imdur ER 30 mg daily -Continue aspirin 81 mg daily, Lipitor 40 mg daily, Plavix 75 mg daily, Toprol XL 12.5 mg daily, lisinopril 20 mg daily -Will need follow-up with his [employer] within 1 week in [facility] Subjective fever and chills. MAXIMUM TEMPERATURE 37.5. However, Tylenol was given this morning for headache. Concerning with patient's history of recurrent bacteremia, which is thought to be GI source due to abnormalities in biliary tree. Patient is typically on prophylactic Augmentin 875 mg daily -Stat blood cultures, lactic acid, CRP, ESR, pro-calcitonin, LFTs -Begin Zosyn 3.375 g IV every 8 hours -Case discussed with Dr. Nuñez in [facility] (phone [phone]) who follows patient regularly from infectious disease standpoint. He recommended observing the patient for an additional 24 hours for signs of fever. He did not recommend any imaging at this point HTN-BP improved today -add Imdur ER as noted above -Hydralazine 10 mg IV q 6 hr PRN Sinus bradycardia-BP stable -It should be noted that the patient felt like he became more fatigued with the addition of metoprolol. 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 Attempts were made to minimize the grammatical errors, random word insertions, pronoun errors and incomplete sentences. Any formal questions or concerns about the content, text or information contained within the body of this dictation should be directly addressed to the provider for clarification. (Rita Donovan, PAMariolaC) Reviewed: Pt Seen/Exam by Me (Adrianne Quintana, ) History Pt had chest pain earlier this AM, but none further. No SOB. Pt is concerned as he has hx of recurrent bacteremia s/p Whipple for autoimmune sclerosing pancreatitis. He has been on Bactrim proph for this prior, but had been changed to Augmentin, which he takes daily. He took his dose yesterday with his breakfast as usual, but did not get a dose this AM. He noted fever and chills after missing this dose, most recent was around 11am and resolved with tylenol. He states that this is how his bacteremia usually starts. Also states that he has a lower normal temp around 95-96 and that 99 is a fever for him. Agree with HPI/ROS as noted. (Adrianne Quintana, ) General Appearance: WD/WN, no apparent distress Respiratory: normal breath sounds, no respiratory distress Cardiovascular: normal peripheral pulses, regular rate, rhythm Gastrointestinal: non tender, soft Extremities: non-tender, no pedal edema Neurologic/Psychiatric: alert, normal mood/affect Skin Characteristics: normal color, warm/dry (Adrianne Quintana, ) Assessment/Plan Agree with plan as outlined above Neg cardiac work-up Concern from pt over elevated temp/chills in the setting of missing his abx dose this AM by a few hours. Does seem unlikely that he would have developed bacteremia this quickly, but given hx, will given zosyn and monitor overnight PA spoke with pt's ID physician in [place] who agrees with this plan given hx. (Adrianne Quintana, DO)
[2016-08-16] MEDS ORDERED: PIPERACILL/TAZOBAC IV 3.375 GM in DEXTROSE 5% 100ML 100 ML IV SCH (14:00)
[2016-08-16] MEDS ORDERED: PIPERACILL/TAZOBAC CONSULT ACTIVE PRN (14:15)
[2016-08-16] MEDS: PIPERACILL/TAZOBAC IV 4.5 GM in DEXTROSE 5% 100ML 100 ML IV SCH ×2 (14:28→22:01)
[2016-08-16 15:10] LABS: ALT/SGPT 21 U/L (12-78); AST/SGOT 15 U/L (15-37); BLOOD UREA NITROGEN 13 mg/dl (7-18); BUN/CREATININE RATIO 11.1 (10-20); CALCIUM 7.9 mg/dl (8.5-10.1); CARBON DIOXIDE 28 mmol/L (21-32); CHLORIDE 103 mmol/L (98-107); GLUCOSE 173 mg/dl (70-99); POTASSIUM 3.5 mmol/L (3.5-5.1); SODIUM 139 mmol/L (136-145)
[2016-08-16 15:18] LABS: ALKALINE PHOSPHATASE 93 U/L (45-117)
[2016-08-16 15:27] LABS: INR 1.1 (0.9-1.1); PARTIAL THROMBOPLASTIN RATIO 1.3; PROTHROMBIN TIME (PATIENT) 11.7 SECONDS (9.0-12.0)
[2016-08-16 19:14] LABS: URINE APPEARANCE CLEAR (CLEAR); URINE BILIRUBIN NEG (NEG); URINE COLOR DK YELLOW; URINE NITRITE NEG (NEG); URINE SPECIFIC GRAVITY 1.029 (1.000-1.030); UROBILINOGEN NEG (NEG)
[2016-08-16 19:15] LABS: MANUAL MICROSCOPIC REQUIRED? NO; REVIEW REQ? NO
[2016-08-16] MEDS: SUCRALFATE 1 GM TAB PO SCH (20:39)
[2016-08-16] MEDS: ATORVASTATIN 40 MG TAB PO SCH (20:39)
[2016-08-17] VITALS: BP 122/71; PULSE 73; TEMP 37.4; O2SAT 96
[2016-08-17] MEDS: ACETAMINOPHEN 325 MG TAB PO PRN ×2 (00:42→13:26)
[2016-08-17 03:48] VITALS: BP 123/73; PULSE 61; TEMP 36.9; O2SAT 96
[2016-08-17] MEDS: PIPERACILL/TAZOBAC IV 4.5 GM in DEXTROSE 5% 100ML 100 ML IV SCH ×3 (05:44→21:45)
[2016-08-17 06:07] LABS: BASO % 0.1 %; BASO ABS # 0.01 K/uL (0-0.2); COMPLETE YES; EOS % 0.8 %; HEMATOCRIT 36.3 % (42-52); IG% 0.3 %; LYMPH % 10.5 %; LYMPH ABS # 1.16 K/uL (1.2-3.4); MEAN CELL VOLUME 89.4 fL (80-100); MEAN CORPUSCULAR HEMOGLOBIN 30.3 pg (25-34); MEAN CORPUSCULAR HGB CONC 33.9 g/dl (32-36); MEAN PLATELET VOLUME 9.8 fL (7.4-10.4); MONO % 8.1 %; NEUT % 80.2 %; PLATELET COUNT 157 K/uL (130-400); RED BLOOD COUNT 4.06 M/uL (4.7-6.1); WHITE BLOOD COUNT 11.02 K/uL (4.8-10.8)
[2016-08-17 06:33] LABS: BUN/CREATININE RATIO 12.5 (10-20); CALCIUM 7.9 mg/dl (8.5-10.1); CREATININE 1.1 mg/dl (0.60-1.40); POTASSIUM 3.5 mmol/L (3.5-5.1)
[2016-08-17 06:37] LABS: ALB/GLOB RATIO 0.9 (0.9-2)
[2016-08-17 07:18] VITALS: BP 125/70; PULSE 66; TEMP 37.3; O2SAT 95
[2016-08-17] MEDS: ASPIRIN 81 MG ECTAB PO SCH (08:11)
[2016-08-17] MEDS: ISOSORBIDE MONONITRATE 30 MG TABCR PO SCH (08:11)
[2016-08-17] MEDS: PANTOprazole SOD 40 MG TAB PO SCH (08:12)
[2016-08-17] MEDS: CLOPIDOGREL BISULFATE 75 MG TAB PO SCH (08:12)
[2016-08-17] MEDS: LISINOPRIL 20 MG TAB PO SCH (08:13)
[2016-08-17] MEDS: ENOXAPARIN 40 MG/0.4 ML SYR SQ SCH (08:25)
[2016-08-17] MEDS: INSULIN ASPART 100 UNITS/ML 3 ML PEN SC SCH ×4 (08:25→20:51)
[2016-08-17] MEDS: METOPROLOL SUCC 25MG EXT REL TAB PO SCH (09:40)
--- NOTE | 2016-08-17 12:21 | Progress Note ---
Subjective Date of Service: Aug 17, 2016. Subjective Pt evaluation today including: conversation w/ patient Pt states he is feeling somewhat improved from yesterday. Still very fatigued. No longer feeling fever/chills. His appetite is decreased, which he said is usual for him when he has bacteremia. No further chest pain. Tolerated the PO he did take. Pt denies SOB, abd pain, n/v/c/d, LE pain or swelling. ROS as noted above, otherwise neg. Pt states he was changed to augmentin approximately 6 months ago. Problem List Medical Problems: (1) Left sided chest pain Status: Acute Objective Vital Signs Date Time Temp Pulse Resp B/P Pulse Ox O2 Delivery O2 Flow Rate FiO2 08/17/16 08:00 Room Air 08/17/16 07:18 37.3 66 18 125/70 95 Room Air 08/17/16 04:00 Room Air 08/17/16 03:48 36.9 61 18 123/73 96 Room Air 08/17/16 00:01 Room Air 08/17/16 00:00 37.4 73 18 122/71 96 Room Air 08/16/16 20:00 96 Room Air 08/16/16 19:20 36.9 60 20 169/78 96 Room Air 08/16/16 18:07 37.8 69 18 125/70 08/16/16 16:00 Room Air 08/16/16 16:00 37.3 62 16 181/76 95 Room Air Physical Exam General Appearance: WD/WN, no apparent distress Respiratory/Chest: normal breath sounds, no respiratory distress Cardiovascular: regular rate, rhythm, no edema Abdomen: non tender, soft Extremities: non-tender, no pedal edema Neurologic/Psychiatric: alert, normal mood/affect, oriented x 3 Skin: normal color, warm/dry Laboratory Results Last 24 Hours Test 08/16/16 14:10 08/16/16 14:55 08/16/16 16:19 08/16/16 18:00 Sodium Level 139 mmol/L Potassium Level 3.5 mmol/L Chloride Level 103 mmol/L Carbon Dioxide Level 28 mmol/L Anion Gap 8.0 mmol/L Blood Urea Nitrogen 13 mg/dl Creatinine 1.20 mg/dl Est Creatinine Clear Calc Drug Dose 75.1 ml/min Estimated GFR () 71.1 Estimated GFR (Non- 61.3 BUN/Creatinine Ratio 11.1 Random Glucose 173 mg/dl Calcium Level 7.9 mg/dl Total Bilirubin 0.8 mg/dl Aspartate Amino Transf (AST/SGOT) 15 U/L Alanine Aminotransferase (ALT/SGPT) 21 U/L Alkaline Phosphatase 93 U/L Total Creatine Kinase 31 U/L Creatine Kinase MB < 0.5 ng/ml Creatine Kinase MB Ratio Troponin I < 0.015 ng/ml Total Protein 6.6 gm/dl Albumin 3.3 gm/dl Globulin 3.3 gm/dl Albumin/Globulin Ratio 1.0 Lipase 63 U/L Prothrombin Time 11.7 SECONDS Prothromb Time International Ratio 1.1 Activated Partial Thromboplast Time 34.8 SECONDS Partial Thromboplastin Ratio 1.3 Bedside Glucose 138 mg/dl Urine Color DK YELLOW Urine Appearance CLEAR Urine pH 8.0 Urine Specific [place] 1.029 Urine Protein NEG Urine Glucose (UA) NEG Urine Ketones TRACE Urine Occult Blood NEG Urine Nitrite NEG Urine Bilirubin NEG Urine Urobilinogen NEG Urine Leukocyte Esterase TRACE Urine WBC (Auto) 1-5 /hpf Urine RBC (Auto) 0-4 /hpf Urine Hyaline Casts (Auto) 1-5 /lpf Urine Epithelial Cells (Auto) 10-20 /lpf Urine Bacteria (Auto) NEG Test 08/16/16 20:29 08/17/16 05:25 08/17/16 07:21 Bedside Glucose 125 mg/dl 174 mg/dl White Blood Count 11.02 K/uL Red Blood Count 4.06 M/uL Hemoglobin 12.3 g/dL Hematocrit 36.3 % Mean Corpuscular Volume 89.4 fL Mean Corpuscular Hemoglobin 30.3 pg Mean Corpuscular Hemoglobin Concent 33.9 g/dl Platelet Count 157 K/uL Mean Platelet Volume 9.8 fL Neutrophils (%) (Auto) 80.2 % Lymphocytes (%) (Auto) 10.5 % Monocytes (%) (Auto) 8.1 % Eosinophils (%) (Auto) 0.8 % Basophils (%) (Auto) 0.1 % Neutrophils # (Auto) 8.84 K/uL Lymphocytes # (Auto) 1.16 K/uL Monocytes # (Auto) 0.89 K/uL Eosinophils # (Auto) 0.09 K/uL Basophils # (Auto) 0.01 K/uL RDW Standard Deviation 44.3 fL RDW Coefficient of Variation 13.6 % Immature Granulocyte % (Auto) 0.3 % Immature Granulocyte # (Auto) 0.03 K/uL Sodium Level 139 mmol/L Potassium Level 3.5 mmol/L Chloride Level 103 mmol/L Carbon Dioxide Level 29 mmol/L Anion Gap 7.0 mmol/L Blood Urea Nitrogen 14 mg/dl Creatinine 1.10 mg/dl Est Creatinine Clear Calc Drug Dose 81.9 ml/min Estimated GFR () 79.0 Estimated GFR (Non- 68.1 BUN/Creatinine Ratio 12.5 Random Glucose 170 mg/dl Calcium Level 7.9 mg/dl Total Bilirubin 1.5 mg/dl Aspartate Amino Transf (AST/SGOT) 17 U/L Alanine Aminotransferase (ALT/SGPT) 23 U/L Alkaline Phosphatase 88 U/L Total Protein 6.5 gm/dl Albumin 3.0 gm/dl Globulin 3.5 gm/dl Albumin/Globulin Ratio 0.9 Assessment and Plan 70-year-old male with a history of coronary artery disease, [place] and stent placement presents emergency department complaining of a few minutes of crushing chest pain prior to arrival Chest pain concerning for stable angina in the setting of coronary artery disease with hx of RCA stents x2 and another known partial blockage that was not stented. Has resolved -Cardiac enzymes remain negative -No EKG changes noted -Appreciate Echo EF preserved at 65-70%. No wall motion abnormalities noted. -d/c nitro paste -add Imdur ER 30 mg daily -Continue aspirin 81 mg daily, Lipitor 40 mg daily, Plavix 75 mg daily, Toprol XL 12.5 mg daily, lisinopril 20 mg daily -Will need follow-up with his can cleaner within 1 week in [facility] Subjective fever and chills. MAXIMUM TEMPERATURE 37.5. However, Tylenol was given this morning for headache. Concerning with patient's history of recurrent bacteremia, which is thought to be GI source due to abnormalities in biliary tree. Patient is typically on prophylactic Augmentin 875 mg daily, which was changed from Bactrim approx 6 months ago Blood cx + x2 for gram neg bacilli, sensi pending Continue zosyn until sensi are resulted Lactic acid WNL, CRP and ESR elevated, LFTs WNL -Begin Zosyn 3.375 g IV every 8 hours -Case discussed with Dr. Nuñez in [place], [place] (phone [phone]) yesterday, who follows patient regularly from infectious disease standpoint. He agreed with observing the patient on zosyn while awaiting blood cx for signs of fever and pt's hx. He did not recommend any imaging at this point. Still no focal signs of infection. Will discuss with again with Dr. Nuñez tomorrow once sensi is resulted. It seems very unlikely that pt would become bacteremic after missing his AM augmentin dose by just a few hours. Possibly developed a resistance to augmentin and this was brewing [employer]? Improving on zosyn and will discuss ongoing abx plans tomorrow. HTN-BP improved today -add Imdur ER as noted above -Hydralazine 10 mg IV q 6 hr PRN Sinus bradycardia-BP stable -It should be noted that the patient felt like he became more fatigued with the addition of metoprolol. 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
[2016-08-17 13:27] VITALS: TEMP 37.4
[2016-08-17 14:51] VITALS: BP 113/64; PULSE 64; TEMP 36.8; O2SAT 96
[2016-08-17 16:00] VITALS: O2SAT 96
[2016-08-17] MEDS: SUCRALFATE 1 GM TAB PO SCH (20:47)
[2016-08-17] MEDS: ATORVASTATIN 40 MG TAB PO SCH (20:48)
[2016-08-18] VITALS: O2SAT 96
[2016-08-18 00:34] VITALS: BP 121/64; PULSE 60; TEMP 37.2; O2SAT 96
[2016-08-18] MEDS: ACETAMINOPHEN 325 MG TAB PO PRN ×2 (00:42→22:03)
[2016-08-18 02:30] VITALS: TEMP 36.6
[2016-08-18] MEDS: PIPERACILL/TAZOBAC IV 4.5 GM in DEXTROSE 5% 100ML 100 ML IV SCH (05:10)
[2016-08-18 07:13] LABS: BASO % 0.1 %; BASO ABS # 0.01 K/uL (0-0.2); COMPLETE YES; EOS % 2.6 %; IG% 0.4 %; LYMPH % 17.5 %; LYMPH ABS # 1.33 K/uL (1.2-3.4); MEAN CELL VOLUME 90.7 fL (80-100); MEAN CORPUSCULAR HGB CONC 33.1 g/dl (32-36); MEAN PLATELET VOLUME 9.6 fL (7.4-10.4); MONO % 8.6 %; NEUT % 70.8 %; PLATELET COUNT 152 K/uL (130-400); RED BLOOD COUNT 3.53 M/uL (4.7-6.1); WHITE BLOOD COUNT 7.59 K/uL (4.8-10.8)
[2016-08-18 07:27] VITALS: BP 122/64; PULSE 50; TEMP 36.6; O2SAT 98
[2016-08-18] MEDS: ASPIRIN 81 MG ECTAB PO SCH (07:52)
[2016-08-18] MEDS: ISOSORBIDE MONONITRATE 30 MG TABCR PO SCH (07:53)
[2016-08-18] MEDS: METOPROLOL SUCC 25MG EXT REL TAB PO SCH (07:53)
[2016-08-18] MEDS: LISINOPRIL 20 MG TAB PO SCH (07:53)
[2016-08-18] MEDS: ENOXAPARIN 40 MG/0.4 ML SYR SQ SCH (07:54)
[2016-08-18] MEDS: CLOPIDOGREL BISULFATE 75 MG TAB PO SCH (07:54)
[2016-08-18] MEDS: PANTOprazole SOD 40 MG TAB PO SCH (07:54)
[2016-08-18] MEDS: INSULIN ASPART 100 UNITS/ML 3 ML PEN SC SCH ×4 (08:38→22:12)
--- NOTE | 2016-08-18 12:52 | Hospitalist Progress Note ---
Hospitalist Progress Note Date of Service Aug 18, 2016. (Rita Donovan PA-C) Subjective Pt evaluation today including: conversation w/ patient, conversation w/ family , physical exam, chart review, conversation w/ renewable energy consultant, review of inpatient medication list Feeling less achy today. Still with mild chills. Think that his fever broke last night. Denies any further chest pain or pressure. No shortness of breath. Denies abdominal pain. Had a normal bowel movement this morning. Additional Comments: 6 system review negative. Please see pertinent positives in the history of present illness section. (Rita Donovan PA-C) Objective Vital Signs Date Time Temp Pulse Resp B/P Pulse Ox O2 Delivery O2 Flow Rate FiO2 08/18/16 08:00 Room Air 08/18/16 07:27 36.6 50 16 122/64 98 Room Air 08/18/16 02:30 36.6 08/18/16 00:34 37.2 60 20 121/64 96 Room Air 08/18/16 00:00 96 Room Air 08/17/16 16:00 96 Room Air 08/17/16 14:51 36.8 64 20 113/64 96 Room Air 08/17/16 13:27 37.4 (Rita Donovan PA-C) Physical Exam General Appearance: no apparent distress Neck: no JVD Respiratory/Chest: lungs clear Cardiovascular: regular rate, rhythm Abdomen: normal bowel sounds, non tender, soft Extremities: non-tender, no pedal edema Neurologic/Psychiatric: no motor/sensory deficits, oriented x 3 (Rita Donovan PA-C) Laboratory Results 08/18/16 06:40 Red Blood Count 3.53, Mean Corpuscular Volume 90.7, Mean Corpuscular Hemoglobin 30.0, Mean Corpuscular Hemoglobin Concent 33.1, Mean Platelet Volume 9.6, Neutrophils (%) (Auto) 70.8, Lymphocytes (%) (Auto) 17.5, Monocytes (%) (Auto) 8.6, Eosinophils (%) (Auto) 2.6, Basophils (%) (Auto) 0.1, Neutrophils # (Auto) 5.37, Lymphocytes # (Auto) 1.33, Monocytes # (Auto) 0.65, Eosinophils # (Auto) 0.20, Basophils # (Auto) 0.01 Test 08/18/16 06:40 08/18/16 11:16 White Blood Count 7.59 K/uL (4.8-10.8) Red Blood Count 3.53 M/uL (4.7-6.1) Hemoglobin 10.6 g/dL (14.0-18.0) Hematocrit 32.0 % (42-52) Mean Corpuscular Volume 90.7 fL (80-100) Mean Corpuscular Hemoglobin 30.0 pg (25-34) Mean Corpuscular Hemoglobin Concent 33.1 g/dl (32-36) Platelet Count 152 K/uL (130-400) Mean Platelet Volume 9.6 fL (7.4-10.4) Neutrophils (%) (Auto) 70.8 % Lymphocytes (%) (Auto) 17.5 % Monocytes (%) (Auto) 8.6 % Eosinophils (%) (Auto) 2.6 % Basophils (%) (Auto) 0.1 % Neutrophils # (Auto) 5.37 K/uL (1.4-6.5) Lymphocytes # (Auto) 1.33 K/uL (1.2-3.4) Monocytes # (Auto) 0.65 K/uL (0.11-0.59) Eosinophils # (Auto) 0.20 K/uL (0-0.5) Basophils # (Auto) 0.01 K/uL (0-0.2) RDW Standard Deviation 44.7 fL (36.4-46.3) RDW Coefficient of Variation 13.6 % (11.5-14.5) Immature Granulocyte % (Auto) 0.4 % Immature Granulocyte # (Auto) 0.03 K/uL (0.00-0.02) Bedside Glucose 293 mg/dl (70-99) Last 24 Hours Test 08/17/16 16:31 08/17/16 20:14 08/18/16 06:40 08/18/16 07:39 Bedside Glucose 280 mg/dl 198 mg/dl 229 mg/dl White Blood Count 7.59 K/uL Red Blood Count 3.53 M/uL Hemoglobin 10.6 g/dL Hematocrit 32.0 % Mean Corpuscular Volume 90.7 fL Mean Corpuscular Hemoglobin 30.0 pg Mean Corpuscular Hemoglobin Concent 33.1 g/dl Platelet Count 152 K/uL Mean Platelet Volume 9.6 fL Neutrophils (%) (Auto) 70.8 % Lymphocytes (%) (Auto) 17.5 % Monocytes (%) (Auto) 8.6 % Eosinophils (%) (Auto) 2.6 % Basophils (%) (Auto) 0.1 % Neutrophils # (Auto) 5.37 K/uL Lymphocytes # (Auto) 1.33 K/uL Monocytes # (Auto) 0.65 K/uL Eosinophils # (Auto) 0.20 K/uL Basophils # (Auto) 0.01 K/uL RDW Standard Deviation 44.7 fL RDW Coefficient of Variation 13.6 % Immature Granulocyte % (Auto) 0.4 % Immature Granulocyte # (Auto) 0.03 K/uL Test 08/18/16 11:16 Bedside Glucose 293 mg/dl (Rita Donovan, MÓNICA) Assessment and Plan 70-year-old male with a history of coronary artery disease, IA and stent placement presents emergency department complaining of a few minutes of crushing chest pain prior to arrival Chest pain -observed in telemetry -Cardiac enzymes negative -No EKG changes noted -Appreciate Echo EF preserved at 65-70%. No wall motion abnormalities noted. -Continue Imdur ER 30 mg daily -Continue aspirin 81 mg daily, Lipitor 40 mg daily, Plavix 75 mg daily, Toprol XL 12.5 mg daily, lisinopril 20 mg daily -Will need follow-up with his marketing administrator within 1 week in [facility] recurrent bacteremia, which is thought to be GI source due to abnormalities in biliary tree. Patient is typically on prophylactic Augmentin 875 mg daily -Blood cx with E. coli x 2-->sens to zosyn -narrow abx to ceftriaxone 1 G daily -Pt's ID doc, Dr. Nuñez in [facility] (phone [phone]) updated HTN-BP much better -continue current regimen Sinus bradycardia-BP stable -It should be noted that the patient felt like he became more fatigued with the addition of metoprolol. 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 consider prophylaxis with Keflex DVT prophylaxis -Begin Lovenox 40 mg daily -TEDS, SCDs CODE STATUS -LEVEL I FULL CODE This chart was completed in part utilizing [employer] Voice Recognition software. Attempts were made to minimize the grammatical errors, random word insertions, pronoun errors and incomplete sentences. Any formal questions or concerns about the content, text or information contained within the body of this dictation should be directly addressed to the provider for clarification. (Rita Donovan, PAMariolaC) Reviewed: Pt Seen/Exam by Me (Adrianne Quintana, DO) History Feeling much improved today. No further elevated temps or chills. Appetite has picked back up. No further chest pain. Agree with HPI/ROS as noted. (Adrianne Quintana, DO) General Appearance: WD/WN, no apparent distress Respiratory: normal breath sounds, no respiratory distress Cardiovascular: normal peripheral pulses, regular rate, rhythm Gastrointestinal: non tender, soft Extremities: non-tender, no pedal edema Neurologic/Psychiatric: alert, normal mood/affect, oriented x 3 Skin Characteristics: normal color, warm/dry (Adrianne Quintana, DO) Assessment/Plan Agree with plan as outlined above Cx sensi shows ampicillin R, so likely pt was developing sepsis ANESTHESIOLOGY MEDICAL DOCTOR due to augmentin resistance, also note bactrim resistance Several PO abx options available, awaiting call back from pt's home ID physician for preference on choice given pt's hx of recurrent bacteremia and need for senior living abx Ideally, will switch to PO today and monitor 24 hrs off IV abx (Adrianne Quintana, DO)
[2016-08-18] MEDS ORDERED: CEFTRIAXONE SOD INJ 1 GM in DEXTROSE 5% ADD-VANTAGE 50ML 50 ML IV SCH (14:00)
[2016-08-18 15:10] VITALS: BP 127/72; PULSE 52; TEMP 36.6; O2SAT 97
[2016-08-18] MEDS: SUCRALFATE 1 GM TAB PO SCH (19:53)
[2016-08-18] MEDS: ATORVASTATIN 40 MG TAB PO SCH (19:53)
[2016-08-18] MEDS: CIPROFLOXACIN 500 MG TAB PO SCH (19:53)
[2016-08-18 23:15] VITALS: BP 146/78; PULSE 52; TEMP 36.7; O2SAT 97
[2016-08-19 07:09] LABS: HEMATOCRIT 33.6 % (42-52); MEAN CELL VOLUME 90.3 fL (80-100); MEAN CORPUSCULAR HEMOGLOBIN 30.4 pg (25-34); MEAN CORPUSCULAR HGB CONC 33.6 g/dl (32-36); MEAN PLATELET VOLUME 9.5 fL (7.4-10.4); PLATELET COUNT 166 K/uL (130-400); RED BLOOD COUNT 3.72 M/uL (4.7-6.1); WHITE BLOOD COUNT 6.01 K/uL (4.8-10.8)
[2016-08-19] MEDS ORDERED: IMDSR30 PO (07:31)
[2016-08-19] MEDS ORDERED: CPR500 PO (07:31)
--- NOTE | 2016-08-19 07:43 | Discharge Instructions ---
Discharge Instructions Date of Service Aug 19, 2016. Admission Reason for Admission: Chest Pain Discharge Discharge Diagnosis / Problem: bacteremia, chest pain Discharge Goals Goal(s): Improve function, Diagnostic testing, Therapeutic intervention Activity Recommendations Activity Limitations: resume your previous activity . Instructions / Follow-Up Instructions / Follow-Up You were admitted to the hospital with complaints of chest pain. Cardiac workup was performed including cardiac enzymes and an echocardiogram. No significant abnormalities were noted. Unfortunately, your blood cultures are positive with Escherichia coli. This was treated with IV antibiotics. Dr. Nuñez was contacted. He recommended oral antibiotics for at least 2 weeks and close follow-up. An incidental finding of 2 pulmonary nodules were noted on the chest CT--> please follow up with your primary care physician for these findings The following changes/additions have been made to your medication list: -Ciprofloxacin 500 mg by mouth twice daily. Please continue to take this until you have follow-up with Dr. Nuñez -Imdur extended release 30 mg 1 tab daily Please follow up with your primary care physician within one week Please also follow up with your consulting database administrator within 2 weeks Call your doctor or return to the emergency department if you have any of the following symptoms: -Fever of 100F or greater -Persistent vomiting - Persistent diarrhea -Lethargy -Returning Chest pain -Shortness of breath -abdominal pain -weakness on one side of your body Current Hospital Diet Patient's current hospital diet: AHA Diet (Heart Healthy), Diabetes Type 1 Diet Discharge Diet Recommended Diet: AHA Diet (Heart Healthy), Diabetes Type 2 Diet Procedures Procedures Performed: CT chest IMPRESSION: 1. There is no evidence of pulmonary embolus in the main, lobar, or segmental pulmonary arteries. 2. Cardiomegaly and emphysema. 3. There are 2 left lower lobe pulmonary nodules measuring 8 mm and 9 mm. These are pathologically indeterminant but warrant follow-up as per the Fleischner criteria. See below. 4. No airspace consolidation or pleural effusion is identified. 5. Nodularity of the hepatic surface contour suggests early changes of cirrhosis. Clinical correlation will be required. echo * 1. Normal left ventricular size and systolic function. EF 60-65%. No regional wall motion abnormalities. Mild concentric left ventricular hypertrophy. Type 1 diastolic dysfunction. * 2. No significant valvular abnormalities visualized. * 3. Mildly dilated aortic root. * 4. No prior study available for comparison Pending Studies Studies pending at discharge: no Laboratory Results 08/19/16 06:43 Test 08/18/16 20:32 08/19/16 06:43 Bedside Glucose 254 mg/dl (70-99) Red Blood Count 3.72 M/uL (4.7-6.1) Mean Corpuscular Volume 90.3 fL (80-100) Mean Corpuscular Hemoglobin 30.4 pg (25-34) Mean Corpuscular Hemoglobin Concent 33.6 g/dl (32-36) RDW Standard Deviation 43.8 fL (36.4-46.3) RDW Coefficient of Variation 13.4 % (11.5-14.5) Mean Platelet Volume 9.5 fL (7.4-10.4) Medical Emergencies . Who to Call and When: Medical Emergencies: If at any time you feel your situation is an emergency, please call 911 immediately. . Non-Emergent Contact Non-Emergency issues call your: Primary Care Provider . . "Provider Documentation" section prepared by Rita Donovan. . VTE Core Measure Inpt VTE Proph given/why not?: Enoxaparin (Lovenox)FELIX, T.E.Christina. Stockings, SCD's
[2016-08-19 07:49] LABS: CREATININE 0.89 mg/dl (0.60-1.40)
[2016-08-19 08:03] VITALS: BP 169/87; PULSE 55; TEMP 36.5; O2SAT 98
[2016-08-19] MEDS: ISOSORBIDE MONONITRATE 30 MG TABCR PO SCH ×2 (08:45→10:51)
[2016-08-19] MEDS: LISINOPRIL 20 MG TAB PO SCH (08:45)
[2016-08-19] MEDS: CIPROFLOXACIN 500 MG TAB PO SCH (08:45)
[2016-08-19] MEDS: PANTOprazole SOD 40 MG TAB PO SCH (08:46)
[2016-08-19] MEDS: ASPIRIN 81 MG ECTAB PO SCH (08:46)
[2016-08-19] MEDS: METOPROLOL SUCC 25MG EXT REL TAB PO SCH (08:46)
[2016-08-19] MEDS: CLOPIDOGREL BISULFATE 75 MG TAB PO SCH (08:46)
[2016-08-19] MEDS: ENOXAPARIN 40 MG/0.4 ML SYR SQ SCH (08:47)
[2016-08-19] MEDS: INSULIN ASPART 100 UNITS/ML 3 ML PEN SC SCH ×2 (08:50→13:17)
--- NOTE | 2016-08-19 12:03 | Discharge Summary ---
Discharge Summary Date of Service Aug 19, 2016. (Rita Donovan PA-C) Discharge Summary Admission Date: Aug 17, 2016 at 12:22 Discharge Date: Aug 19, 2016 Discharge Disposition: Home Principal Diagnosis: bacteremia, chest pain Problems/Secondary Diagnoses: CAD DM HTN Procedures: CT chest IMPRESSION: 1. There is no evidence of pulmonary embolus in the main, lobar, or segmental pulmonary arteries. 2. Cardiomegaly and emphysema. 3. There are 2 left lower lobe pulmonary nodules measuring 8 mm and 9 mm. These are pathologically indeterminant but warrant follow-up as per the Fleischner criteria. See below. 4. No airspace consolidation or pleural effusion is identified. 5. Nodularity of the hepatic surface contour suggests early changes of cirrhosis. Clinical correlation will be required. echo * 1. Normal left ventricular size and systolic function. EF 60-65%. No regional wall motion abnormalities. Mild concentric left ventricular hypertrophy. Type 1 diastolic dysfunction. * 2. No significant valvular abnormalities visualized. * 3. Mildly dilated aortic root. * 4. No prior study available for comparison (Rita Donovan PA-C) Medication Reconciliation New Medications: Ciprofloxacin (Ciprofloxacin HCl) 500 Mg Tab 500 MG PO BID for 21 Days, #42 TAB Isosorbide Mononitrate (Isosorbide Mononitrate ER) 30 Mg Tabcr 30 MG PO QAM for 30 Days, #30 TAB Continued Medications: Aspirin (Aspir-81) 81 Mg Tab 1 TAB PO DAILY for 90 Days, #90 TAB 3 Refills Atorvastatin (Lipitor) 40 Mg Tab 40 MG PO DAILY, TAB Clopidogrel Bisulfate (Plavix) 75 Mg Tab 75 MG PO DAILY, TAB Coenzyme Q10 (Ubidecarenone) (Coq-10) 30 Mg Cap 1 CAP PO DAILY Glipizide (Glipizide Er) 5 Mg Tab 7.5 MG PO DAILY for 90 Days, #135 TAB 3 Refills Lisinopril (Prinivil) 20 Mg Tab 20 MG PO DAILY, TAB Metformin Hcl (Glucophage) 1,000 Mg Tab 1000 MG PO BID, TAB Metoprolol Succinate (Toprol Xl) 25 Mg Tab 12.5 MG PO DAILY, #30 TAB Multiple Vitamin (Multivitamin) 1 Tab Tab 1 TAB PO DAILY, TAB Pantoprazole Sodium (Protonix) 20 Mg Tab 20 MG PO DAILY, #30 TAB Probiotic Product (Probiotic) 1 Tab Tab 1 TAB PO DAILY Sucralfate (Carafate) 1 Gm Tab 1 GM PO DAILY, TAB Discharge Exam Patient feeling well this morning. [place] slightly warm leg last night. Denies any body aches. Feeling like the fever has broken. Denies any further chest pain or pressure. No abdominal pain or nausea. Review of Systems: Constitutional: No fever Respiratory: No cough Cardiovascular: No chest pain Abdomen: No nausea, No pain Genitourinary - Male: No dysuria Physical Exam: General Appearance: no apparent distress Eyes: EOMI Neck: no JVD Respiratory/Chest: lungs clear Cardiovascular: regular rate, rhythm Abdomen / GI: normal bowel sounds, non tender, soft Extremities: no calf tenderness, no pedal edema Neurologic/Psychiatric: no motor/sensory deficits, oriented x 3 Skin: warm/dry (Rita Donovan, PA-C) Hospital Course 70-year-old male with a history of coronary artery disease, PR and stent placement presented to the emergency department complaining of a few minutes of crushing chest pain prior to arrival Chest pain -observed in telemetry -Cardiac enzymes negative -No EKG changes noted -Appreciate Echo EF preserved at 65-70%. No wall motion abnormalities noted. 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 Patient is typically on prophylactic Augmentin 875 mg daily -treated with zosyn -Blood cx with E. coli x 2-->sens to zosyn -Case discussed with pt's ID doc, Dr. Nuñez in [place], [place]-->start Cipro 500 mg po BID x at least 2 weeks. F/U with Dr. Nuñez in one week -Pt was afebrile for 24 hrs off IV ABX prior to d/c HTN-BP much better -Added Imdur ER 30 mg daily Sinus bradycardia-BP stable -It should be noted that the patient felt like he became more fatigued with the addition of metoprolol. 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 Attempts were made to minimize the grammatical errors, random word insertions, pronoun errors and incomplete sentences. Any formal questions or concerns about the content, text or information contained within the body of this dictation should be directly addressed to the provider for clarification. Total Time Spent: Greater than 30 minutes This includes examination of the patient, discharge planning, medication reconciliation, and communication with other providers. (Rita Donovan PA-C) Discharge Instructions Please refer to the electronic Patient Visit Report (Discharge Instructions) for additional information. (Rita Donovan PA-C) Follow-Up PCP 1 week ID 1 week Cardiology 2 weeks (Rita Donovan PA-C) Reviewed: Pt Seen/Exam by Me (Adrianne Quintana, DO) History Pt is feeling much improved. No further elevated temps. Tolerating PO without issue. They are planning to return to [place] either tonight or tomorrow and will f /u with ID and cardiology at that time. Agree with HPI/ROS as noted. 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
[2016-08-19 14:07] VITALS: BP 169/87; PULSE 55; TEMP 36.5; O2SAT 98
== END 2016-08-19 14:45 | disposition home or self-care (01) | DRG 303 ==
LOC: ENRESERVTM → ENRESERVDT → C.EDB 09:31 → C.2T 14:02 → C.MS2W 08-17 10:51 → OBSVTOIN 08-17 12:22 → C.MS2W 08-17 14:25
PROVIDERS: ADMIT Hospitalist; ATTEND Family Medicine
DX: I25.118 Atherosclerotic heart disease of native coronary artery with other forms of angina pectoris (principal); R78.81 Bacteremia; B96.20 Unspecified Escherichia coli [E. coli] as the cause of diseases classified elsewhere; R00.1 Bradycardia, unspecified; M79.662 Pain in left lower leg; R51 Headache; E11.9 Type 2 diabetes mellitus without complications; I10 Essential (primary) hypertension; I25.2 Old myocardial infarction; Z16.11 Resistance to penicillins; Z16.29 Resistance to other single specified antibiotic; Z90.411 Acquired partial absence of pancreas; Z95.5 Presence of coronary angioplasty implant and graft; Z87.891 Personal history of nicotine dependence; Z79.82 Long term (current) use of aspirin; Z79.02 Long term (current) use of antithrombotics/antiplatelets; Z79.84 Long term (current) use of oral hypoglycemic drugs; Z79.899 Other long term (current) drug therapy